=== PATIENT | female | born 1980 | race Caucasian/White ===

== ENCOUNTER 2018-06-03 21:37 | Emergency (ER) | payer OTHER ==
[2018-06-03 22:22] LABS: PLATELET COUNT 236 10^3/uL (150-400)
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
[2018-06-03] MEDS ORDERED: KETOROLAC 15 MG/1 ML SDV ONE (23:01)
[2018-06-03] MEDS ORDERED: NS 1,000 ML IV ONE (23:04)
[2018-06-03] MEDS ORDERED: KETOROLAC 15 MG/1 ML SDV IVP ONE (23:04)
[2018-06-04] MEDS ORDERED: ALBUTEROL 3 ML DEYVIAL IH ONE (01:07)
[2018-06-04] MEDS ORDERED: ALBUTEROL INH PREPACK MDI TAKEHOME ONE (01:39)
[2018-06-04 01:57] VITALS: BP 132/72
--- NOTE | 2018-06-04 06:13 | CPEKG ---
Test Reason : OPEN Blood Pressure : / mmHG Vent. Rate : 095 BPM Atrial Rate : 096 BPM P-R Int : 131 ms QRS Dur : 105 ms QT Int : 376 ms P-R-T Axes : 065 052 -37 degrees QTc Int : 473 ms Sinus rhythm Borderline T abnormalities, inferior leads Confirmed by Simon Barillas [id number] on 06/04/2018 6:13:21 AM Referred By: Confirmed By:Simon Barillas
== END 2018-06-04 01:57 | disposition home or self-care (01) ==
LOC: EDUNIT#
DX: R07.9 Chest pain, unspecified (principal)
CPT/HCPCS: 84484-PO; 96374; J1885; J7613